=== PATIENT | female | born 1975 | race Caucasian/White ===

== ENCOUNTER 2018-01-13 11:18 | Day surgery (SDC) | payer OTHER, SELFPAY ==
[2018-01-13] VITALS (7 sets, daily range): BP systolic 129–136; BP diastolic 79–94; PULSE 81–95; RESP 16–18; TEMP 36.1–36.8; O2SAT 95–100; BMI 36.6
[2018-01-13] MEDS: Acetaminophen 325 MG Tablet 650 MG PO (07:00)
[2018-01-13] MEDS: Ketorolac 60 MG/2 ML Vial IM (07:00)
[2018-01-13 11:54] LABS: Internal QC Validated? YES +Cl - CLEAR BKGD; Pregnancy, Urine Negative Negative
[2018-01-13 12:04] LABS: Hematocrit 41.6 % (37-47); Hemoglobin 13.5 g/dl (12.0-15.0); Mean Corp Hgb Conc 32.5 g/gl (32-36); Mean Corpuscular Hgb 28.5 pg (27.0-32.0); Mean Corpuscular Volume 87.9 fL (81-99); Mean Platelet Vol. 9.7 fl (6.2-12.0); Platelet Count 283 K/mm3 (150-450); RBC Distribution Width CV 13.5 % (11.6-14.6); RBC Distribution Width SD 43.3 fl (35.1-43.9); Red Blood Count 4.73 M/mm3 (4.2-5.4)
[2018-01-13 12:05] LABS: Scan Indicated on CBC? Y/N NO
--- NOTE | 2018-01-13 13:00 | EMB_PTH ---
PATIENT: IBIS ISSA [place] [facility] [place][id number] AGE/SX: 42/F ROOM: RE01/13/[address]: Dr. Zenaida Dsouza MD : 1975 BED: DIS: 01/13/2018 SPEC #: [id number] RECD: 01/13/18 15:41 STATUS: JUHI RELuis Enrique #: [id number] ANASTASIIA: 01/13/18 13:[address]: Zenaida Dsouza DEPT: SURGICAL PATHOLOGY RECD BY: Altagracia Tariq ENTERED: 01/14/18 09:43 SP TYPE: ENDOM BX/C OTHR DR: Dr. Bill Granados, DO Tissues: Endometrium, NOS Procedures: Surgery Specimen Level IV HEADER OPERATION: Hysteroscopy, diagnostic, D & C, Nolvia PRE-OP DIAGNOSIS: Menorrhagia TISSUE SUBMITTED: Endometrial curettings MICROSCOPIC DIAGNOSIS Endometrial curettings: Proliferative endometrium. Fragments of benign ecto- and endocervical epithelium with chronic inflammation, blood and mucous. LAURENCE:addison 01/17/18 MICROSCOPIC DESCRIPTION Slides are reviewed. GROSS DESCRIPTION Received in fixative is one container labeled with the patient's name and designated endometrial curettings. The specimen consists of multiple fragments of hemorrhagic soft tissue that in aggregate measure 2.5 x 1.5 x 0.1 cm. The specimen is totally submitted in one cassette. / LAURENCE:addison 01/14/18 TC:5 CPT: 41228
--- NOTE | 2018-01-13 13:21 | PCM.DC.D&C ---
Discharge Diet: No Restrictions Discharge Activity: Return to Normal Activity, May Shower, May Take a Tub Bath - in 2 weeks. May resume sexual activity in: 2 weeks Call your doctor if your incision/area has: Sudden Increased Bleeding, Foul Smelling Discharge Call your doctor if you observe: Fever of 101 or Higher, Uncontrolled pain Allergies/Adverse Reactions: Allergies phenytoin sodium [From Dilantin] Allergy (Verified 01/06/18 14:04) Unknown phenytoin sodium extended [From Dilantin] Allergy (Verified 01/06/18 14:04) Unknown Medications to take at Discharge Cholecalciferol (Vitamin D3) [Vitamin D] 5,000 unit PO DAILY 09/21/13 Duloxetine Hcl [Cymbalta] 120 mg PO DAILY 09/21/13 Levothyroxine Sodium [Levoxyl] 137 mcg PO DAILY 09/21/13 Omeprazole [Prilosec] 20 mg PO DAILY 09/21/13 Ibuprofen [Motrin] 400 mg PO Q6H PRN 01/06/18 Prasterone (Dhea) [Dhea 25] 25 mg PO DAILY 01/06/18 Hydrocodone/Acetaminophen [[place] 5-325 Tablet] 1 each PO Q6H PRN PRN 2 Days #7 tablet 01/13/18 The following prescriptions were given: Hydrocodone/Acetaminophen [[place] 5-325 Tablet] 1 each PO Q6H PRN PRN 2 Days #7 tablet PRN Reason: Pain Primary Care Physician: Bill Granados DO [Primary Care Provider] - Please Follow Up With: Zenaida Dsouza MD - [phone] When: 2-4 weeks or as needed
[2018-01-13] MEDS: Lubricating Jelly 60 GM Tube 30 GM TOPICAL (13:30)
--- NOTE | 2018-01-13 13:45 | OP.PCM_ITS ---
Report of Operation Date of Procedure: 01/13/18 Pre-Operative Diagnosis: menorrhagia Post-Operative Diagnosis: same + bicornuate shaped uterine cavity Surgery/Procedure Performed:: hysteroscopy D&C Description of Surgical Findings:: normal cervix, bicornuate shaped uterine cavity with both tubal ostia identified shipping track supervisor: Danielle Diaz Type of Anesthesia:: MAC/Supplemental/Local Special Medications: none Specimen's removed: endometrial curettings Drains: none Estimated Blood Loss (mL): 10cc Fluids Replaced: 900 cc LR Description of Procedure: The patient was taken to the OR where she was prepped and draped in dorsal lithotomy position. The weighted speculum was placed in the vagina and the anterior lip of the cervix was grasped with a single-tooth tenaculum. A paracervical block was administered with 1% lidocaine with 1-100,000 epinephrine solution. The cervix was dilated serially with Hegar dilators. The 7mm hysteroscope was placed into the uterine cavity and the above findings were noted. Bilateral tubal ostia were identified. The hysteroscope was removed. A gentle sharp curettage was done of the uterine cavity. The instruments were removed from the vagina. The specimen was handed off and sent to pathology. All sponge and needle counts were correct. Vaginal sweep was performed by me. The patient was awakened and taken to the recovery room in stable condition. The shape of the uterine cavity was a Y shape with 2 narrow areas one in each cornua. Tubal ostia was noted at the end of each narrow cavity. Vision was made that a Nolvia would not be a good treatment option for this patient as she had to narrow openings and the Nolvia would not seat appropriately. Hysteroscopic ins: 150 cc normal saline Hysteroscopic outs: 100 cc Findings: Endometrial cavity: Normal-appearing endometrium, bicornuate shaped uterus. Uncertain if she has a true bicornuate uterus or whether the uterine fibroid is distorting the endometrial cavity Cervix: normal Vagina: normal Grafts/Implants Used: none - Complications none - Admit VTE Documentation VTE Present on Admission: No VTE Mechan Device Prophylaxis: None VTE Pharm Prophylaxis ordered?: No Reason prophylaxis not ordered:: Procedure Not Indicated
== END 2018-01-13 14:49 | disposition home or self-care (01) ==
LOC: SDC 11:20 → AC 11:28
PROVIDERS: Family Provider Family Medicine; PCP Family Medicine; Visit Provider Obstetrics & Gynecology
PROC: 0U5B8ZZ Destruction of Endometrium, Via Natural or Artificial Opening Endoscopic (ICD-10-PCS; CPT 58558; principal; 2018-01-13 12:45)
DX: N92.0 Excessive and frequent menstruation with regular cycle (principal); D25.9 Leiomyoma of uterus, unspecified; K21.9 Gastro-esophageal reflux disease without esophagitis; E03.9 Hypothyroidism, unspecified; Z87.891 Personal history of nicotine dependence
CPT/HCPCS: 58558; 81025; 85027; 88305; J7120

== ENCOUNTER 2018-04-07 08:52 | Day surgery (SDC) | payer OTHER, SELFPAY ==
[2018-04-01 16:06] LABS: Hemoglobin 13.2 g/dl (12.0-15.0); Mean Corp Hgb Conc 32.2 g/gl (32-36); Mean Corpuscular Hgb 27.7 pg (27.0-32.0); Mean Corpuscular Volume 86.1 fL (81-99); Mean Platelet Vol. 9.9 fl (6.2-12.0); Platelet Count 288 K/mm3 (150-450); RBC Distribution Width CV 13.8 % (11.6-14.6); RBC Distribution Width SD 43.5 fl (35.1-43.9); Red Blood Count 4.76 M/mm3 (4.2-5.4); White Blood Count 8.2 K/mm3 (4.4-11.0)
[2018-04-01 16:09] LABS: Internal QC Validated? YES +Cl - CLEAR BKGD; Pregnancy, Urine Negative Negative
[2018-04-01 16:19] LABS: Scan Indicated on CBC? Y/N NO
[2018-04-01 16:40] LABS: Thyroid Stim Hormone (TSH) 0.76 uIU/mL (0.358-3.74)
[2018-04-07] VITALS (13 sets, daily range): BP systolic 98–155; BP diastolic 54–93; PULSE 62–95; RESP 12–18; TEMP 35.5–36.9; O2SAT 94–99; BMI 37.1
--- NOTE | 2018-04-07 | HYST_PTH ---
PATIENT: IBIS ISSA LOC: [facility] [place] U#:[id number] AGE/SX: 42/F ROOM: RE04/07/[address]: Dr. Zenaida Dsouza MD : 1975 BED: DIS: 04/08/2018 SPEC #: [id number] RECD: 04/08/18 13:16 STATUS: JUHI JUHI #: [id number] ANASTASIIA: 04/07/18 00:[address]: Zenaida Dsouza DEPT: SURGICAL PATHOLOGY RECD BY: Enrique Do ENTERED: 04/08/18 13:16 SP TYPE: HYSTERECT OTHR DR: Dr. Bill Granados, DO Tissues: Uterus, NOS Procedures: Surgery Specimen Level V HEADER OPERATION: Hysterectomy, vaginal, total, bilateral salpingectomy PRE-OP DIAGNOSIS: Intramural uterine fibroid; menorrhagia, bicornuate uterus TISSUE SUBMITTED: Cervix, uterus, bilateral tubes MICROSCOPIC DIAGNOSIS Cervix, uterus, bilateral fallopian tubes, vaginal hysterectomy and bilateral salpingectomy: Cervix ? chronic cystic cervicitis. Endometrium ? proliferative endometrium. Myometrium ? focal adenomyosis. Bilateral fallopian tubes - no pathologic diagnosis. SJ:addison 04/12/18 COMMENT Bicornuate endometrial cavity is noted. MICROSCOPIC DESCRIPTION Slides are reviewed. GROSS DESCRIPTION Received in fixative is one container labeled with the patient's name and designated cervix, uterus, bilateral tubes. The specimen consists of a hysterectomy specimen consisting of uterus with cervix and detached bilateral fallopian tubes. The uterus with cervix weighs 61 gm and measures 7.5 x 5 x 3 cm. The serosal surface is ragged. The ectocervical mucosa is focally congested. The external os is circular in contour. The endocervical canal measures 2.5 cm in length and the endocervical mucosa is lobato, glistening and unremarkable. The endometrial cavity is bicornuate and measures up to 4 cm in length and in the mid portion is a single endometrial cavity that measures 1 cm in width. At the most proximal portion at the edges of the cornu they are by 2.5 cm of normal uterine wall. Sections of the uterine wall do not reveal any mass lesion and it measures up to 1.7 cm in thickness. The fallopian tubes are not identified as right or left. One of the fallopian tubes measure 7.5 cm in length and 0.5 cm in diameter. The fimbrial end is identified. The proximal portion of the fallopian tube shows a Filshie clip which appears intact. The second fallopian tube is received in two pieces. One of the pieces with fimbrial end measures 3 cm in length and 0.6 cm in diameter. The second piece with a Filshie clip measures 2 cm in length and 0.5 cm in diameter. Also received is a separate piece of fallopian tube consisting of fimbrial end measuring 1.5 x 0.5 x 0.5 cm. Coagulating Operator sections are submitted in eight cassettes as follows: 1 - anterior cervix, 2 - posterior cervix, 3 & 4 - anterior uterine wall (3 contains the bicornuate portion of the anterior uterine wall), 5 & 6 - posterior uterine wall (6 contains the bicornuate portion of the posterior uterine wall), 7 ? one fallopian tube, 8 ? second fallopian tube received in multiple pieces. / LAURENCE:addison 04/08/18 TC:5 CPT: 08567
[2018-04-07] MEDS: Acetaminophen 500 MG Tablet 1000 MG PO ×3 (09:24→21:18)
[2018-04-07] MEDS: Gabapentin 600 MG Tablet PO (09:24)
[2018-04-07] MEDS: Celecoxib 200 MG Capsule PO (09:24)
[2018-04-07] MEDS: Phenazopyridine 95 MG Tablet 190 MG PO (09:24)
[2018-04-07] MEDS: Ondansetron ODT 4 MG Tablet 16 MG PO (09:25)
--- NOTE | 2018-04-07 12:25 | PCM.OPRPT ---
Report of Operation Date of Procedure: 04/07/18 Pre-Operative Diagnosis: menorrhagia, bicornuate uterus Post-Operative Diagnosis: same Surgery/Procedure Performed:: TVH, bilateral salpingectomy Description of Surgical Findings:: small uterus, normal ovaries, tubes with filshie clips public health service officer: Ileana Montero Type of Anesthesia:: General Anesthesiologist: Inag Medina Special Medications: none Specimen's removed: uterus, cervix and bilateral tubes Drains: smyth Estimated Blood Loss (mL): 25 Fluids Replaced: 1300 cc Description of Procedure: The patient was taken to the operating room where she was prepped and draped in the normal sterile fashion in the dorsal lithotomy position. A weighted speculum was placed in the vagina and the anterior lip of the cervix was grasped with a Amy clamp. The vaginal epithelium was infiltrated circumferentially around the cervix with [1% Xylocaine solution]. An incision was made anterior cervix with a scalpel and the vaginal epithelium was dissected back with blunt and sharp dissection. The anterior colpotomy incision was made sharply. Entry into the anterior cul-de-sac was confirmed by visualization of the uterine fundus and bowel behind the uterus. The vagina lateral to the cervix was clamped with Kip clamps transected and suture ligated on both sides and excellent hemostasis of the pedicles was noted. The next pedicle was taken of the vaginal side wall and containing the anterior peritoneum and uterine vessels. This was clamped, transected and suture ligated and hemostasis was noted. Uterus was brought to the anterior colpotomy incision and the utero-ovarian ligaments were clamped transected and suture ligated on both sides. The uterosacral ligaments and posterior vaginal cuff were clamped with curved Kip clamps on both sides in the uterus and cervix were amputated from the vagina and handed off. The pedicles were suture-ligated with 0 Vicryl sutures and hemostasis was noted. The triple pedicles were identified and the insertion of the tube into the triple pedicle was clamped across with a Harper clamp and transected and suture ligated. The antimesenteric portion of the tube was clamped across with a Harper clamp, the tube was transected and handed off and the goal was suture ligated. The same procedure was performed on the contralateral side and excellent hemostasis was noted. At this point both ovaries appeared normal, and the pedicles were reexamined and found to be hemostatic. A zwimco-zr-gffld suture was needed in the posterior vaginal cuff between the 2 uterosacral ligament pedicles to secure the peritoneum to the posterior vaginal cuff in the midline. The vaginal cuff was reapproximated in a horizontal fashion with interrupted 0 Vicryl zedxob-sz-iesff sutures. Hemostasis was noted. The Smyth was left to straight drain. Vaginal sweep was performed by Dr. Tyler. All sponge and needle counts were correct. I performed the entire procedure with assistance. All sponge lap and needle counts were correct. Patient was awakened and taken to theher recovery room in stable condition. Grafts/Implants Used: none - Complications none - Admit VTE Documentation VTE Present on Admission: No VTE Mechan Device Prophylaxis: SCD's VTE Pharm Prophylaxis ordered?: Yes
--- NOTE | 2018-04-07 12:31 | OP.PCM_ITS ---
Report of Operation Date of Procedure: 04/07/18 Pre-Operative Diagnosis: menorrhagia, bicornuate uterus Post-Operative Diagnosis: same Surgery/Procedure Performed:: TVH, bilateral salpingectomy Description of Surgical Findings:: small uterus, normal ovaries, tubes with filshie clips seed expert: Ileana Montero Type of Anesthesia:: General Anesthesiologist: Inga Medina Special Medications: none Specimen's removed: uterus, cervix and bilateral tubes Drains: smyth Estimated Blood Loss (mL): 25 Fluids Replaced: 1300 cc Description of Procedure: The patient was taken to the operating room where she was prepped and draped in the normal sterile fashion in the dorsal lithotomy position. A weighted speculum was placed in the vagina and the anterior lip of the cervix was grasped with a Amy clamp. The vaginal epithelium was infiltrated circumferentially around the cervix with [1% Xylocaine solution]. An incision was made anterior cervix with a scalpel and the vaginal epithelium was dissected back with blunt and sharp dissection. The anterior colpotomy incision was made sharply. Entry into the anterior cul-de-sac was confirmed by visualization of the uterine fundus and bowel behind the uterus. The vagina lateral to the cervix was clamped with Kip clamps transected and suture ligated on both sides and excellent hemostasis of the pedicles was noted. The next pedicle was taken of the vaginal side wall and containing the anterior peritoneum and uterine vessels. This was clamped, transected and suture ligated and hemostasis was noted. Uterus was brought to the anterior colpotomy incision and the utero-ovarian ligaments were clamped transected and suture ligated on both sides. The uterosacral ligaments and posterior vaginal cuff were clamped with curved Kip clamps on both sides in the uterus and cervix were amputated from the vagina and handed off. The pedicles were suture- ligated with 0 Vicryl sutures and hemostasis was noted. The triple pedicles were identified and the insertion of the tube into the triple pedicle was clamped across with a Harper clamp and transected and suture ligated. The antimesenteric portion of the tube was clamped across with a Harper clamp, the tube was transected and handed off and the goal was suture ligated. The same procedure was performed on the contralateral side and excellent hemostasis was noted. At this point both ovaries appeared normal, and the pedicles were reexamined and found to be hemostatic. A ollbxu-wu-qbhlw suture was needed in the posterior vaginal cuff between the 2 uterosacral ligament pedicles to secure the peritoneum to the posterior vaginal cuff in the midline. The vaginal cuff was reapproximated in a horizontal fashion with interrupted 0 Vicryl [id number]-[id number] sutures. Hemostasis was noted. The Smyth was left to straight drain. Vaginal sweep was performed by Dr. Tyler. All sponge and needle counts were correct. I performed the entire procedure with assistance. All sponge lap and needle counts were correct. Patient was awakened and taken to theher recovery room in stable condition. Grafts/Implants Used: none - Complications none - Admit VTE Documentation VTE Present on Admission: No VTE Mechan Device Prophylaxis: SCD's VTE Pharm Prophylaxis ordered?: Yes
[2018-04-07] MEDS: Ketorolac 30 MG/ML Syringe IV ×2 (15:44→21:16)
[2018-04-07] MEDS: 0.9% NaCl Peripheral Flush Adult/Peds IV ×2 (15:48→21:17)
[2018-04-07] MEDS: Lactated Ringers 1,000 ML 100 ML IV (15:50)
[2018-04-07] MEDS: Docusate Sodium 100 MG Capsule PO (21:16)
[2018-04-07] MEDS: Senna/Docusate Sodium 1 Tablet PO (21:18)
[2018-04-08] MEDS: Lactated Ringers 1,000 ML 100 ML IV (00:44)
[2018-04-08] MEDS: 0.9% NaCl Peripheral Flush Adult/Peds IV ×2 (03:31→08:27)
[2018-04-08] MEDS: Ketorolac 30 MG/ML Syringe IV ×2 (03:31→08:13)
[2018-04-08 03:36] VITALS: BP 101/58; PULSE 61; RESP 16; TEMP 36.6; O2SAT 96
[2018-04-08] MEDS: Levothyroxine 137 MCG Tablet PO (06:01)
[2018-04-08] MEDS: Acetaminophen 500 MG Tablet 1000 MG PO (06:01)
[2018-04-08 06:05] LABS: Hematocrit 34.4 % (37-47); Hemoglobin 11.1 g/dl (12.0-15.0); Mean Corp Hgb Conc 32.3 g/gl (32-36); Mean Corpuscular Hgb 28.3 pg (27.0-32.0); Mean Corpuscular Volume 87.8 fL (81-99); Platelet Count 256 K/mm3 (150-450); RBC Distribution Width CV 13.7 % (11.6-14.6); RBC Distribution Width SD 42.6 fl (35.1-43.9); Red Blood Count 3.92 M/mm3 (4.2-5.4); White Blood Count 15.5 K/mm3 (4.4-11.0)
[2018-04-08 06:11] LABS: Scan Indicated on CBC? Y/N NO
--- NOTE | 2018-04-08 07:33 | PCM.PN.OB ---
Subjective: Patient reports pain is minimal, no significant vaginal bleeding. Regan catheter is out but she has not been up to urinate yet. She is tolerating regular diet without nausea or vomiting. She states she did well overnight. No chest pain or shortness of breath. - Physical Exam General: Alert, Cooperative, No apparent distress Abdomen: Soft, Non-Distended, Tender - Minimally Extremities: No edema Vital Signs Temp Pulse Resp BP Pulse Ox 98 F 61 16 101/58 L 96 04/08/18 03:36 04/08/18 03:36 04/08/18 03:36 04/08/18 03:36 04/08/18 03:36 Oxygen Flow Rate (L/min) 1.5 Oxygen Delivery Method Room Air Weight: 114.2 kg Body Mass Index (BMI) 37.1 Intake and Output for Last 24 Hours 04/06/18 04/07/18 04/08/18 23:59 23:59 23:59 Intake Total 2470 / 2470 2535 / 2535 Output Total 1530 / 1530 1400 / 1400 Balance 940 / 940 1135 / 1135 Laboratory Tests Past 24 Hrs 04/08/18 05:25 WBC 15.5 H RBC 3.92 L Hgb 11.1 L Hct 34.4 L MCV 87.8 MCH 28.3 MCHC 32.3 RDW 13.7 RDW Differential 42.6 Plt Count 256 MPV 10.0 Medical Necessity - Tobacco Use Smoking Status: Former smoker Assessment/Plan Postoperative day #1 status post total vaginal hysterectomy with bilateral salpingectomy Blood count and vital signs are stable. Discussed with her surgical findings. Questions were answered. She will be discharged home with routine instructions and prescriptions and to follow-up in my office in 1-2 weeks or as needed.
--- NOTE | 2018-04-08 07:37 | PCM.DC.VHY ---
Discharge Diet: No Restrictions Discharge Activity: Return to Normal Activity, May Not Drive - while taking narcotic pain medications., May Shower May resume sexual activity in: 6-8 weeks Call your doctor if your incision/area has: Continuous Slow Oozing, Sudden Increased Bleeding, Increased Pain/ Swelling, Increased Redness, Foul Smelling Discharge Call your doctor if you observe: Fever of 101 or Higher, Inability to urinate, Inability to have a bowel movement, Using more than one pad per hour Instructions: Discharge Instructions for Vaginal Hysterectomy Allergies/Adverse Reactions: Allergies phenytoin sodium [From Dilantin] Allergy (Verified 03/31/18 11:07) Unknown phenytoin sodium extended [From Dilantin] Allergy (Verified 03/31/18 11:07) Unknown Medications to take at Discharge Cholecalciferol (Vitamin D3) [Vitamin D] 5,000 unit PO DAILY 09/21/13 Duloxetine Hcl [Cymbalta] 120 mg PO DAILY 09/21/13 Levothyroxine Sodium [Levoxyl] 205.5 mcg PO GILLIS 09/21/13 Omeprazole [Prilosec] 20 mg PO DAILY 09/21/13 Prasterone (Dhea) [Dhea 25] 25 mg PO DAILY 01/06/18 Cbd Oil 0.5 drop PO DAILY 03/31/18 Docusate Sodium [Colace] 300 mg PO DAILY 03/31/18 Levothyroxine [Synthroid] 137 mcg PO [id number] 03/31/18 Ibuprofen [Motrin] 600 mg PO Q6H PRN #60 tab 04/08/18 Oxycodone HCl/Acetaminophen [[place] 5/325] 1 - 2 tablet PO Q8 PRN 7 Days #28 tablet 04/08/18 The following prescriptions were given: Oxycodone HCl/Acetaminophen [Percocet 5/325] 1 - 2 tablet PO Q8 PRN 7 Days #28 tablet PRN Reason: Pain Ibuprofen [Motrin] 600 mg PO Q6H PRN #60 tab PRN Reason: Pain Primary Care Physician: Bill Granados DO [Primary Care Provider] - Please Follow Up With: Zenaida Dsouza MD - [phone] When: 1-2 weeks or as needed
[2018-04-08 08:01] VITALS: O2SAT 93
[2018-04-08 08:07] VITALS: BP 117/67; PULSE 68; RESP 16; TEMP 37.1; O2SAT 97
[2018-04-08] MEDS: Pantoprazole Sodium 20 MG Tablet PO (08:13)
[2018-04-08] MEDS: DULoxetine Hcl 60 MG Capsule 120 MG PO (08:13)
[2018-04-08] MEDS: Docusate Sodium 100 MG Capsule PO (08:13)
[2018-04-08] MEDS: Senna/Docusate Sodium 1 Tablet PO (08:14)
[2018-04-08] MEDS: Enoxaparin 40 MG/0.4 ML Syringe SC (08:14)
[2018-04-08] MEDS: oxyCODONE 5 MG Tablet PO (08:23)
[2018-04-08 08:40] VITALS: BP 117/67; PULSE 68; RESP 16; TEMP 37.1; O2SAT 97
== END 2018-04-08 12:23 | disposition home or self-care (01) ==
LOC: SDC 08:52 → AC 08:53 → MS2 09:52
PROVIDERS: Family Provider Family Medicine; PCP Family Medicine; Visit Provider Obstetrics & Gynecology
PROC: (CPT 58260; principal; 2018-04-07 10:15)
DX: N92.0 Excessive and frequent menstruation with regular cycle (principal); N72 Inflammatory disease of cervix uteri; N80.0 Endometriosis of uterus; Q51.3 Bicornate uterus; H54.40 Blindness, one eye, unspecified eye; E03.9 Hypothyroidism, unspecified; Z87.891 Personal history of nicotine dependence; K21.9 Gastro-esophageal reflux disease without esophagitis; F32.9 Major depressive disorder, single episode, unspecified; F41.9 Anxiety disorder, unspecified
CPT/HCPCS: 58262; 36415; 81025; 84443; 85027; 86850; 86900; 88307; J7120; A4216; J2405

== ENCOUNTER 2021-10-25 10:59 | Outpatient (CLI) | payer OTHER, SELFPAY ==
[2021-10-25] MEDS: 0.9% Saline Lock 10 ML Syringe IV (10:59)
[2021-10-25 11:00] VITALS: BP 115/90; PULSE 109; RESP 20; TEMP 36.9; O2SAT 100; BMI 37.2
[2021-10-25 11:34] VITALS: BP 128/90; PULSE 96; RESP 16; TEMP 37; O2SAT 94
[2021-10-25 12:34] VITALS: BP 112/92; PULSE 92; RESP 16; TEMP 36.7; O2SAT 98
== END 2021-10-25 12:34 | disposition home or self-care (01) ==
LOC: MS3OUT 10:59 → MS3 11:00
PROVIDERS: PCP Family Medicine; Referring Provider Nurse Practitioner Adult Health; Visit Provider Nurse Practitioner Adult Health
DX: Z23 Encounter for immunization (principal); U07.1 COVID-19
CPT/HCPCS: M0245; Q0245